=== PATIENT | female | born 1945 | race Caucasian/White ===

== ENCOUNTER 2022-06-06 18:03 | Inpatient (IN) | payer OTHER ==
[~2022-06-06] VITALS: Ht 162.6 cm; Wt 85.3 kg
[2022-06-06 19:18] LABS: BASOPHILS % (AUTO) 0.6 % (0.0-2.0); EOSINOPHILS # (AUTO) 0.2 K/uL (0.0-0.4); EOSINOPHILS % (AUTO) 2.6 % (0.0-4.0); HEMATOCRIT 39.1 % (36-48); LYMPHOCYTES # (AUTO) 1.5 K/uL (1.0-5.5); LYMPHOCYTES % (AUTO) 20.9 % (20.5-51.5); MEAN CORPUSCULAR HEMOGLOBIN 31 pg (27-31); MEAN CORPUSCULAR HGB CONC 33 % (32-36); MEAN CORPUSCULAR VOLUME 93 fL (79.0-98.0); MONOCYTES # (AUTO) 0.6 K/uL (0.0-1.0); MONOCYTES % (AUTO) 8.3 % (1.7-9.3); NEUTROPHILS % (AUTO) 67.6 % (40.0-70.0); PLATELET COUNT (AUTO) 168 K/uL (130-430); RED BLOOD CELL COUNT(AUTO) 4.22 MIL/uL (4.2-6.2); RED CELL DISTRIBUTION WIDTH 14.1 % (9.0-15.0); WHITE BLOOD COUNT (AUTO) 7.3 K/uL (4.8-10.8)
[2022-06-06 19:20] LABS: BILIRUBIN,URINE NEGATIVE (NEGATIVE); CLARITY/URINE CLEAR (CLEAR); COLOR,URINE YELLOW (YELLOW); GLUCOSE,URINE NEGATIVE (NEGATIVE); KETONES,URINE NEGATIVE (NEGATIVE); NITRITE, URINE NEGATIVE (NEGATIVE); PH,URINE 7.5 (5.0-8.0); PROTEIN URINE NEGATIVE (NEGATIVE); UROBILINOGEN,URINE 0.2 (0.2-1.0)
[2022-06-06 19:29] LABS: BLOOD, URINE TRACE (NEGATIVE); LEUKOCYTE ESTERASE ,URINE TRACE (NEGATIVE)
[2022-06-06 19:30] LABS: BACTERIA,URINE FEW /HPF (None Seen); MUCUS,URINE None Seen /LPF (None Seen); RBC,URINE NONE SEEN /HPF (0-3)
[2022-06-06 19:31] LABS: BARBITURATE, URINE NEGATIVE (NEG <=200); BENZODIAZEPINE, URINE NEGATIVE (NEG <=150); CANNABINOID, URINE NEGATIVE (NEG <=50); COCAINE, URINE NEGATIVE (NEG <=150); METHAMPHETAMINES SCREEN,URINE NEGATIVE (NEG <=500); OPIATE, URINE NEGATIVE (NEG <=100); PHENCYCLIDINE SCREEN,URINE NEGATIVE (NEG <=25); UR TRICYCLIC ANTIDEPRESSANTS NEGATIVE (NEG <=300); URINE AMPHETAMINE NEGATIVE (NEG <=500); URINE METHADONE NEGATIVE (NEG <=200); URINE OXYCODONE SCREEN NEGATIVE (NEG <=100); URINE PROPOXYPHENE SCREEN NEGATIVE (NEG <=300)
[2022-06-06 19:32] LABS: PROTHROMBIN TIME 10.5 SECS (9.5-12.5)
[2022-06-06 19:34] LABS: ALANINE AMINOTRANSFERASE 11 U/L (12-78); ALBUMIN 3.4 g/dL (3.4-4.8); ANION GAP 8 (5-15); ASPARTATE AMINOTRANSFERASE 17 U/L (10-37); CALCIUM 9.1 mg/dL (8.4-11.0); CHLORIDE 104 mmol/L (98-107); CREATININE 0.83 mg/dL (0.55-1.30); GLUCOSE 198 mg/dL (70-99); TOTAL BILIRUBIN 0.7 mg/dL (0.0-1.0); UREA NITROGEN, BLOOD 17 mg/dL (8-21)
[2022-06-06 19:35] LABS: ACETAMINOPHEN < 1 ug/mL (1-30); ALCOHOL, BLOOD < 3 mg/dL (<10); C-REACTIVE PROTEIN QUANT < 0.2 mg/dL (0-0.5)
[2022-06-06 19:59] LABS: ACETONE, SERUM NEGATIVE (NEGATIVE)
[2022-06-06] MEDS ORDERED: INSU100I8 SUBCUT (21:26)
[2022-06-06] MEDS ORDERED: CARB1TAB33 PO (21:26)
[2022-06-06] MEDS ORDERED: LEVE500T9 PO (21:26)
[2022-06-06] MEDS ORDERED: AZAT50TA18 PO (21:26)
[2022-06-06] MEDS ORDERED: INSU100V9 SQ (21:26)
[2022-06-06] MEDS ORDERED: ASA81 PO (21:26)
[2022-06-06] MEDS ORDERED: SER25 PO (21:26)
[2022-06-06] MEDS ORDERED: LIP40 PO (21:26)
[2022-06-06] MEDS ORDERED: ARIP10TA52 PO (21:26)
[2022-06-06] MEDS ORDERED: IPRA4AER INH (21:26)
[2022-06-06] MEDS ORDERED: POLY17PO4 PO (21:26)
[2022-06-06] MEDS ORDERED: QUET400T PO (21:26)
[2022-06-06] MEDS ORDERED: ALBU2.5V7 INH (21:26)
[2022-06-06] MEDS ORDERED: CALC-939 PO (21:26)
[2022-06-06] MEDS ORDERED: IOHEXOL 350 mgI/mL, 150 ML INFUS..BTL IV ONE (21:30)
[2022-06-07 06:26] LABS: BASOPHILS % (AUTO) 0.4 % (0.0-2.0); EOSINOPHILS # (AUTO) 0.1 K/uL (0.0-0.4); EOSINOPHILS % (AUTO) 0.7 % (0.0-4.0); HEMATOCRIT 37.9 % (36-48); HEMOGLOBIN 12.7 g/dL (12.0-16.0); LYMPHOCYTES # (AUTO) 1.4 K/uL (1.0-5.5); LYMPHOCYTES % (AUTO) 13.6 % (20.5-51.5); MEAN CORPUSCULAR HEMOGLOBIN 31 pg (27-31); MEAN CORPUSCULAR HGB CONC 33 % (32-36); MEAN CORPUSCULAR VOLUME 92 fL (79.0-98.0); MONOCYTES # (AUTO) 0.8 K/uL (0.0-1.0); MONOCYTES % (AUTO) 7.6 % (1.7-9.3); NEUTROPHILS # (AUTO) 7.7 K/uL (1.8-7.7); NEUTROPHILS % (AUTO) 77.7 % (40.0-70.0); PLATELET COUNT (AUTO) 173 K/uL (130-430); RED BLOOD CELL COUNT(AUTO) 4.11 MIL/uL (4.2-6.2); RED CELL DISTRIBUTION WIDTH 14.2 % (9.0-15.0); WHITE BLOOD COUNT (AUTO) 9.9 K/uL (4.8-10.8)
[2022-06-07 06:40] LABS: ANION GAP 8 (5-15); CHLORIDE 103 mmol/L (98-107); CREATININE 0.74 mg/dL (0.55-1.30); GLUCOSE 173 mg/dL (70-99); UREA NITROGEN, BLOOD 13 mg/dL (8-21)
[2022-06-07 06:45] LABS: ALANINE AMINOTRANSFERASE 16 U/L (12-78); ALBUMIN 3.4 g/dL (3.4-4.8); ASPARTATE AMINOTRANSFERASE 18 U/L (10-37); TOTAL BILIRUBIN 1.1 mg/dL (0.0-1.0)
[2022-06-07 07:17] VITALS: BP_SYST 153
[2022-06-07 08:17] VITALS: BP_SYST 121
[2022-06-07] MEDS ORDERED: GLUCOSE (DEXTROSE) ORAL GEL -Adults PO PRN (08:30)
[2022-06-07] MEDS ORDERED: DEXTROSE 50%-WATER 50 ML DISP.SYRIN IVP PRN (08:30)
[2022-06-07] MEDS ORDERED: D5W 1,000 ML IV PRN (08:30)
[2022-06-07] MEDS: ACETAMINOPHEN 325 MG TABLET PO PRN (09:36)
[2022-06-07 11:20] VITALS: BP_SYST 122
[2022-06-07] MEDS: INSULIN REGULAR, HUMAN 100 UNITS/ML, 3 ML VIAL (humuLIN R) SUBCUT PRN ×2 (12:20→21:08)
[2022-06-07 15:14] VITALS: BP_SYST 141
[2022-06-07] MEDS ORDERED: LevALBUTEROL HCL 1.25 MG/0.5 ML *CONC.* VIAL.NEB (XOPENEX CONC.) INH PRN (15:30)
[2022-06-07] MEDS ORDERED: POLYETHYLENE GLYCOL 3350, 17 GM/ POWD.PACK PO PRN (15:30)
[2022-06-07] MEDS ORDERED: LOSARTAN POTASSIUM 50 MG TABLET (COZAAR) PO ONE (15:45)
[2022-06-07] MEDS ORDERED: ASPIRIN 81 MG TAB.CHEW PO ONE (15:45)
[2022-06-07] MEDS ORDERED: ARIPiprazole 5 MG TAB PO ONE (15:45)
[2022-06-07] MEDS ORDERED: ATORVASTATIN 20 MG TABLET PO ONE (15:45)
[2022-06-07 16:24] VITALS: BP_SYST 141
[2022-06-07] MEDS: LevALBUTEROL HCL 1.25 MG/0.5 ML *CONC.* VIAL.NEB (XOPENEX CONC.) INH SCH (20:15)
[2022-06-07 21:00] VITALS: BP_SYST 138
[2022-06-07] MEDS: QUEtiapine FUMARATE 25 MG TABLET PO SCH (21:09)
[2022-06-07] MEDS: ENOXAPARIN SODIUM 40 MG/0.4 ML SYRINGE SUBCUT SCH (21:09)
[2022-06-07] MEDS: CALCIUM CARBONATE/VITAMIN D3 1 TAB TABLET PO SCH (21:09)
[2022-06-07] MEDS: levETIRAcetam 500 MG TABLET PO SCH (21:09)
[2022-06-08] VITALS: BP_SYST 141
[2022-06-08] MEDS: LevALBUTEROL HCL 1.25 MG/0.5 ML *CONC.* VIAL.NEB (XOPENEX CONC.) INH SCH ×4 (01:00→19:54)
[2022-06-08 02:09] VITALS: BP_SYST 122
[2022-06-08] MEDS: INSULIN REGULAR, HUMAN 100 UNITS/ML, 3 ML VIAL (humuLIN R) SUBCUT PRN ×2 (06:47→22:45)
[2022-06-08 08:00] VITALS: BP_SYST 170
[2022-06-08] MEDS: CARBIDOPA/LEVODOPA 10/100 MG TABLET PO SCH ×4 (10:22→20:39)
[2022-06-08] MEDS: ARIPiprazole 5 MG TAB PO SCH (10:25)
[2022-06-08] MEDS: ATORVASTATIN 20 MG TABLET PO SCH (10:25)
[2022-06-08] MEDS: levETIRAcetam 500 MG TABLET PO SCH ×2 (10:26→20:39)
[2022-06-08] MEDS: ASPIRIN 81 MG TAB.CHEW PO SCH (10:28)
[2022-06-08] MEDS: LOSARTAN POTASSIUM 50 MG TABLET (COZAAR) PO SCH (10:29)
[2022-06-08] MEDS: CALCIUM CARBONATE/VITAMIN D3 1 TAB TABLET PO SCH ×3 (10:30→20:40)
[2022-06-08 11:27] VITALS: BP_SYST 138
[2022-06-08 15:11] VITALS: BP_SYST 147
[2022-06-08 20:29] VITALS: BP_SYST 141
[2022-06-08] MEDS: ENOXAPARIN SODIUM 40 MG/0.4 ML SYRINGE SUBCUT SCH (20:40)
[2022-06-08] MEDS: QUEtiapine FUMARATE 25 MG TABLET PO SCH (20:41)
[2022-06-09 01:01] VITALS: BP_SYST 126
[2022-06-09] MEDS: LevALBUTEROL HCL 1.25 MG/0.5 ML *CONC.* VIAL.NEB (XOPENEX CONC.) INH SCH ×4 (01:01→19:57)
[2022-06-09] MEDS: INSULIN REGULAR, HUMAN 100 UNITS/ML, 3 ML VIAL (humuLIN R) SUBCUT PRN ×4 (07:16→21:21)
[2022-06-09 08:00] VITALS: BP_SYST 145
[2022-06-09] MEDS: levETIRAcetam 500 MG TABLET PO SCH ×2 (08:23→21:01)
[2022-06-09] MEDS: ATORVASTATIN 20 MG TABLET PO SCH (08:23)
[2022-06-09] MEDS: LOSARTAN POTASSIUM 50 MG TABLET (COZAAR) PO SCH (08:23)
[2022-06-09] MEDS: ASPIRIN 81 MG TAB.CHEW PO SCH (08:23)
[2022-06-09] MEDS: ARIPiprazole 5 MG TAB PO SCH (08:23)
[2022-06-09] MEDS: CARBIDOPA/LEVODOPA 10/100 MG TABLET PO SCH ×4 (08:23→21:15)
[2022-06-09] MEDS: CALCIUM CARBONATE/VITAMIN D3 1 TAB TABLET PO SCH ×3 (08:24→21:03)
[2022-06-09 11:32] VITALS: BP_SYST 144
[2022-06-09] MEDS ORDERED: MILK OF MAGNESIA 30 ML UDC PO PRN (12:15)
[2022-06-09] MEDS ORDERED: MILK OF MAGNESIA 30 ML UDC PO ONE (12:15)
[2022-06-09 15:15] VITALS: BP_SYST 141
[2022-06-09] MEDS: ENOXAPARIN SODIUM 40 MG/0.4 ML SYRINGE SUBCUT SCH (21:02)
[2022-06-09] MEDS: SENNOSIDES 8.6 MG TABLET PO SCH (21:03)
[2022-06-09] MEDS: QUEtiapine FUMARATE 25 MG TABLET PO SCH (21:04)
[2022-06-09] MEDS: MELATONIN 5 MG TABLET PO SCH (21:16)
[2022-06-10 00:31] VITALS: BP_SYST 131
[2022-06-10] MEDS: LevALBUTEROL HCL 1.25 MG/0.5 ML *CONC.* VIAL.NEB (XOPENEX CONC.) INH SCH ×4 (01:00→20:51)
[2022-06-10] MEDS: ATORVASTATIN 20 MG TABLET PO SCH (09:00)
[2022-06-10] MEDS: levETIRAcetam 500 MG TABLET PO SCH ×2 (09:00→21:30)
[2022-06-10] MEDS: ARIPiprazole 5 MG TAB PO SCH (09:00)
[2022-06-10] MEDS: LOSARTAN POTASSIUM 50 MG TABLET (COZAAR) PO SCH (09:00)
[2022-06-10] MEDS: ASPIRIN 81 MG TAB.CHEW PO SCH (09:00)
[2022-06-10] MEDS: CALCIUM CARBONATE/VITAMIN D3 1 TAB TABLET PO SCH ×3 (09:00→21:39)
[2022-06-10] MEDS: CARBIDOPA/LEVODOPA 10/100 MG TABLET PO SCH ×4 (09:00→21:39)
[2022-06-10 11:36] VITALS: BP_SYST 137
[2022-06-10 12:39] VITALS: BP_SYST 137
[2022-06-10] MEDS: INSULIN REGULAR, HUMAN 100 UNITS/ML, 3 ML VIAL (humuLIN R) SUBCUT PRN ×2 (13:33→21:53)
[2022-06-10] MEDS ORDERED: ACETAMINOPHEN 325 MG TABLET PO PRN (14:45)
[2022-06-10 17:07] VITALS: BP_SYST 120
[2022-06-10 20:00] VITALS: BP_SYST 127
[2022-06-10] MEDS: QUEtiapine FUMARATE 25 MG TABLET PO SCH (21:30)
[2022-06-10] MEDS: MELATONIN 5 MG TABLET PO SCH (21:30)
[2022-06-10] MEDS: SENNOSIDES 8.6 MG TABLET PO SCH (21:30)
[2022-06-10] MEDS: ENOXAPARIN SODIUM 40 MG/0.4 ML SYRINGE SUBCUT SCH (21:31)
[2022-06-10] MEDS: ACETAMINOPHEN 325 MG TABLET PO PRN (21:42)
[2022-06-11 00:48] VITALS: BP_SYST 105
[2022-06-11] MEDS: LevALBUTEROL HCL 1.25 MG/0.5 ML *CONC.* VIAL.NEB (XOPENEX CONC.) INH SCH ×4 (01:43→20:24)
[2022-06-11] MEDS: INSULIN REGULAR, HUMAN 100 UNITS/ML, 3 ML VIAL (humuLIN R) SUBCUT PRN ×4 (06:50→22:11)
[2022-06-11 08:16] VITALS: BP_SYST 123
[2022-06-11] MEDS: ASPIRIN 81 MG TAB.CHEW PO SCH (10:24)
[2022-06-11] MEDS: levETIRAcetam 500 MG TABLET PO SCH ×2 (10:25→21:52)
[2022-06-11] MEDS: CARBIDOPA/LEVODOPA 10/100 MG TABLET PO SCH ×4 (10:25→21:52)
[2022-06-11] MEDS: ARIPiprazole 5 MG TAB PO SCH (10:26)
[2022-06-11] MEDS: ACETAMINOPHEN 325 MG TABLET PO PRN (10:26)
[2022-06-11] MEDS: ATORVASTATIN 20 MG TABLET PO SCH (10:26)
[2022-06-11] MEDS: LOSARTAN POTASSIUM 50 MG TABLET (COZAAR) PO SCH (10:27)
[2022-06-11] MEDS: CALCIUM CARBONATE/VITAMIN D3 1 TAB TABLET PO SCH ×3 (10:27→21:52)
[2022-06-11 11:25] VITALS: BP_SYST 148
[2022-06-11 16:54] VITALS: BP_SYST 120
[2022-06-11 20:00] VITALS: BP_SYST 117
[2022-06-11] MEDS: QUEtiapine FUMARATE 25 MG TABLET PO SCH (21:52)
[2022-06-11] MEDS: SENNOSIDES 8.6 MG TABLET PO SCH (21:52)
[2022-06-11] MEDS: ENOXAPARIN SODIUM 40 MG/0.4 ML SYRINGE SUBCUT SCH (21:53)
[2022-06-11] MEDS: MELATONIN 5 MG TABLET PO SCH (21:54)
[2022-06-12 01:06] VITALS: BP_SYST 108
[2022-06-12] MEDS: LevALBUTEROL HCL 1.25 MG/0.5 ML *CONC.* VIAL.NEB (XOPENEX CONC.) INH SCH ×4 (04:11→19:55)
[2022-06-12] MEDS: INSULIN REGULAR, HUMAN 100 UNITS/ML, 3 ML VIAL (humuLIN R) SUBCUT PRN ×4 (06:06→20:53)
[2022-06-12 07:15] VITALS: BP_SYST 128
[2022-06-12] MEDS: ASPIRIN 81 MG TAB.CHEW PO SCH (08:34)
[2022-06-12] MEDS: LOSARTAN POTASSIUM 50 MG TABLET (COZAAR) PO SCH (08:34)
[2022-06-12] MEDS: ATORVASTATIN 20 MG TABLET PO SCH (08:34)
[2022-06-12] MEDS: levETIRAcetam 500 MG TABLET PO SCH ×2 (08:34→20:41)
[2022-06-12] MEDS: ARIPiprazole 5 MG TAB PO SCH (08:34)
[2022-06-12] MEDS: CALCIUM CARBONATE/VITAMIN D3 1 TAB TABLET PO SCH ×3 (08:34→20:41)
[2022-06-12] MEDS: CARBIDOPA/LEVODOPA 10/100 MG TABLET PO SCH ×4 (08:37→20:40)
[2022-06-12 10:41] VITALS: BP_SYST 123
[2022-06-12] MEDS: ACETAMINOPHEN 325 MG TABLET PO PRN (14:40)
[2022-06-12 16:34] VITALS: BP_SYST 148
[2022-06-12 20:00] VITALS: BP_SYST 125
[2022-06-12] MEDS: SENNOSIDES 8.6 MG TABLET PO SCH (20:41)
[2022-06-12] MEDS: ENOXAPARIN SODIUM 40 MG/0.4 ML SYRINGE SUBCUT SCH (20:42)
[2022-06-12] MEDS: MELATONIN 5 MG TABLET PO SCH (20:43)
[2022-06-12] MEDS: QUEtiapine FUMARATE 25 MG TABLET PO SCH (20:48)
[2022-06-13] MEDS: LevALBUTEROL HCL 1.25 MG/0.5 ML *CONC.* VIAL.NEB (XOPENEX CONC.) INH SCH ×4 (01:22→19:40)
[2022-06-13] MEDS: ACETAMINOPHEN 325 MG TABLET PO PRN ×2 (01:33→09:09)
[2022-06-13 02:39] VITALS: BP_SYST 123
[2022-06-13] MEDS: INSULIN REGULAR, HUMAN 100 UNITS/ML, 3 ML VIAL (humuLIN R) SUBCUT PRN ×3 (06:09→17:51)
[2022-06-13 07:31] VITALS: BP_SYST 150
[2022-06-13] MEDS: ARIPiprazole 5 MG TAB PO SCH (09:06)
[2022-06-13] MEDS: CALCIUM CARBONATE/VITAMIN D3 1 TAB TABLET PO SCH ×2 (09:06→14:43)
[2022-06-13] MEDS: ATORVASTATIN 20 MG TABLET PO SCH (09:06)
[2022-06-13] MEDS: CARBIDOPA/LEVODOPA 10/100 MG TABLET PO SCH ×3 (09:06→17:48)
[2022-06-13] MEDS: ASPIRIN 81 MG TAB.CHEW PO SCH (09:07)
[2022-06-13] MEDS: levETIRAcetam 500 MG TABLET PO SCH (09:07)
[2022-06-13] MEDS: LOSARTAN POTASSIUM 50 MG TABLET (COZAAR) PO SCH (09:07)
[2022-06-13 11:42] VITALS: BP_SYST 110
[2022-06-13 18:22] VITALS: BP_SYST 136
[2022-06-13 20:21] VITALS: BP_SYST 139
== END 2022-06-13 21:35 | disposition home or self-care (01) | DRG 56 ==
LOC: SED 18:03 → STU 06-07 00:06 → SMU 06-07 14:36
PROVIDERS: ADMIT Family Medicine; ATTEND Family Medicine
DX: G20 Parkinson's disease (principal); G93.41 Metabolic encephalopathy; E11.9 Type 2 diabetes mellitus without complications; I10 Essential (primary) hypertension; G40.909 Epilepsy, unspecified, not intractable, without status epilepticus; K59.00 Constipation, unspecified; F25.9 Schizoaffective disorder, unspecified; Z20.822 Contact with and (suspected) exposure to COVID-19; Z79.82 Long term (current) use of aspirin; Z79.4 Long term (current) use of insulin; Z79.899 Other long term (current) drug therapy
CPT/HCPCS: 36415; 36416; 70450-TC; 70496; 70498; 71045; 76376; 80053; 80307; 81000; 82009; 82140; 82550; 83605; 83880; 84484; 85025; 85610-TC; 85730-TC; 86140; 87040; 87081; 93005; 94640; 94760; 95816; 97110-GP; 97112-GP; 97116-GP; 97530-GP; 99285; G0480; G0481; G0482; J1650; J1815; J7612; Q9967